=== PATIENT | male | born 1945 | race Caucasian/White ===

== ENCOUNTER 2019-05-25 14:19 | Emergency (ER) | payer MEDICARE, OTHER ==
[2019-05-25 14:41] LABS: BILIRUBIN,URINE NEGATIVE (NEGATIVE); GLUCOSE, URINE (UA) NEGATIVE (NEGATIVE); KETONES,URINE (UA) NEGATIVE (NEGATIVE); LEUKOCYTE ESTERASE, URINE NEGATIVE (NEGATIVE); NITRITE,URINE NEGATIVE (NEGATIVE); OCCULT BLOOD,URINE NEGATIVE (NEGATIVE); PROTEIN,URINE NEGATIVE (NEGATIVE); UROBILINOGEN,URINE 0.2 (NORMAL) E.U./dL (NORMAL)
[2019-05-25] MEDS ORDERED: SODIUM CHLORIDE 0.9% 1,000 ML IV ONE (14:41)
--- NOTE | 2019-05-25 14:43 | ED Physician Documentation ---
PD HPI ABD PAIN - Stated complaint Stated Complaint: SIDE/BACK PX - Chief complaint Chief Complaint: Abd Pain - History obtained from History obtained from: Patient - History of Present Illness Timing - onset: Other (73-year-old gentleman with history of PE on Eliquis, hypertension. He is been feeling ill for a little over a week with nausea, right flank pain, dark urine, dizziness, myalgias. Also some chest fullness. Was seen 2 days ago in the ER at [place]. Per him he had lab work showed done showing renal insufficiency although he does not know the details. He was low on blood pressure when he arrived. He received 3 L of IV fluids. Urinalysis was not done. He was released with a prescription for Zofran. He says he is no better.) Review of Systems Ten Systems: 10 systems reviewed and negative Constitutional: reports: Fatigue. denies: Fever, Chills Cardiac: reports: Chest pain / pressure. denies: Palpitations, Pedal edema, Calf pain Respiratory: reports: Dyspnea (gone). denies: Cough GI: reports: Abdominal Pain, Nausea, Diarrhea (once a day). denies: Vomiting : denies: Dysuria PD PAST MEDICAL HISTORY - Allergies Allergies/Adverse Reactions: Allergies Allergy/AdvReac Type Severity Reaction Status Date / Time No Known Drug Allergies Allergy Verified 05/25/19 14:30 PD ED PE NORMAL - Vitals Vital signs reviewed: Yes - General General: Alert and oriented X 3, No acute distress - HEENT HEENT: PERRL, EOMI - Neck Neck: Supple, no meningeal sign, No bony TTP - Cardiac Cardiac: RRR, No murmur - Respiratory Respiratory: No respiratory distress, Clear bilaterally - Abdomen Abdomen: Soft, Non tender - Back Back: No CVA TTP, No spinal TTP - Derm Derm: Normal color, Warm and dry - Extremities Extremities: No edema, No calf tenderness / cord - Neuro Neuro: Alert and oriented X 3, Normal speech Results - Vitals Vitals: Vital Signs - 24 hr 05/25/19 05/25/19 05/25/19 14:27 14:30 16:30 Temperature 36.3 C L Heart Rate 96 96 59 L Respiratory 16 16 16 Rate Blood Pressure 123/98 H 123/98 H 117/74 O2 Saturation 97 97 98 Oxygen O2 Source Room air - Labs Labs: Laboratory Tests 05/25/19 05/25/19 05/25/19 13:58 13:58 13:58 WBC 5.4 RBC 4.74 Hgb 14.2 Hct 40.1 L MCV 84.6 MCH 30.0 MCHC 35.4 RDW 12.3 Plt Count 221 MPV 10.3 Neut # (Auto) 4.2 Lymph # (Auto) 0.6 L [place] # (Auto) 0.5 Eos # (Auto) 0.1 Baso # (Auto) 0.0 Absolute Nucleated RBC 0.00 Nucleated RBC % 0.0 Sodium 138 Potassium 4.0 Chloride 103 Carbon Dioxide 21 Anion Gap 14.0 H BUN 20 Creatinine 1.1 Estimated GFR (MDRD) 66 L Glucose 121 H Calcium 9.3 Total Bilirubin 1.7 H AST 14 ALT 18 Alkaline Phosphatase 53 Troponin I < 0.04 Total Protein 8.0 Albumin 4.3 Globulin 3.7 Albumin/Globulin Ratio 1.2 Lipase 26 Urine Color Urine Clarity Urine pH Ur Specific [place] Urine Protein Urine Glucose (UA) Urine Ketones Urine Occult Blood Urine Nitrite Urine Bilirubin Urine Urobilinogen Ur Leukocyte Esterase Ur Microscopic Review Urine Culture Comments 05/25/19 14:39 WBC RBC Hgb Hct MCV MCH MCHC RDW Plt Count MPV Neut # (Auto) Lymph # (Auto) [place] # (Auto) Eos # (Auto) Baso # (Auto) Absolute Nucleated RBC Nucleated RBC % Sodium Potassium Chloride Carbon Dioxide Anion Gap BUN Creatinine Estimated GFR (MDRD) Glucose Calcium Total Bilirubin AST ALT Alkaline Phosphatase Troponin I Total Protein Albumin Globulin Albumin/Globulin Ratio Lipase Urine Color YELLOW Urine Clarity CLEAR Urine pH 6.0 Ur Specific [place] <=1.005 Urine Protein NEGATIVE Urine Glucose (UA) NEGATIVE Urine Ketones NEGATIVE Urine Occult Blood NEGATIVE Urine Nitrite NEGATIVE Urine Bilirubin NEGATIVE Urine Urobilinogen 0.2 (NORMAL) Ur Leukocyte Esterase NEGATIVE Ur Microscopic Review NOT INDICATED Urine Culture Comments NOT INDICATED - Rads (name of study) CT KUB Radiology: EMP read contemporaneously (No hydronephrosis or ureteral calculi, bilateral renal hypodensities, left upper pole renal scarring, LAP-BAND in place, degenerative disease in the back.) CT A/P w contrast Radiology: Final report received, See rad report RUQ sono Radiology: Final report received, See rad report PD MEDICAL DECISION MAKING - ED course Complexity details: reviewed old records (Records requested and received from [facility] emergency department from the evening of May 23. Chest x-ray was done and read as no acute disease.Blood pressure documented there is being 109/74.EKG was interpreted as it is normal.His creatinine on that date was 1.89 with a BUN of 38. Normal electrolytes. High-sensitivity troponin was negative. CBC was normal with a white count of 8.0. Hemoglobin at that time was 15.6. His bilirubin at that time was 1.1, now 1.7.) ED course: 73-year-old gentleman with about a week's worth of right flank and mid abdominal pain. He was seen the other day in [place], he says a urine was not done but his blood work was notable for acute renal failure which on review of the findings it was. He received 3 L of fluid. He is seeking further care today because he is neither better nor worse. He feels generally ill with continued pain and nausea and poor appetite. Pain is not severe and he declined medications for it. He was thoroughly worked up here today, initial CT was done without contrast to evaluate for kidney stone noting that renal function recently has been poor but this was noncontributory, and this was followed with a double contrast CT without further acute findings. He did have incidental findings including a gastric lap band in place, renal cyst, fatty liver. His bilirubin was higher today than it was the other day so right upper quadrant ultrasound was also done without findings of an acute nature other than a fatty liver. He seemed relieved that the results were negative and declined further treatment and agreed with discharge. Departure - Departure Disposition: 01 Home, Self Care Clinical Impression: Nausea Abdominal pain Qualifiers: Abdominal location: right upper quadrant Qualified Code(s): R10.11 - Right upper quadrant pain Condition: Good Record reviewed to determine appropriate education?: Yes Instructions: Abdominal Pain Comments: Return anytime if worse or if new symptoms develop. Follow-up with your doctor within the week for recheck. Drink plenty of fluids.
[2019-05-25 14:44] LABS: CLARITY,URINE CLEAR (CLEAR)
[2019-05-25 15:01] LABS: BASOPHILS % (AUTO) 0.6 %; EOSINOPHILS # (AUTO) 0.1 10^3/uL (0.0-0.7); EOSINOPHILS % (AUTO) 1.8 %; HGB - HEMOGLOBIN 14.2 g/dL (14.0-18.0); LYMPHOCYTES # (AUTO) 0.6 10^3/uL (1.5-3.5); LYMPHOCYTES % (AUTO) 10.9 %; MEAN CORPUSCULAR HGB CONC 35.4 g/dL (32.0-36.0); MEAN CORPUSCULAR VOLUME 84.6 fL (80.0-94.0); MEAN PLATELET VOLUME 10.3 fL (7.4-11.4); MONOCYTES # (AUTO) 0.5 10^3/uL (0.0-1.0); NEUTROPHILS # (AUTO) 4.2 10^3/uL (1.5-6.6); NEUTROPHILS % (AUTO) 77.3 %; PLT - PLATELET COUNT 221 10^3/uL (130-450); RED BLOOD COUNT 4.74 10^6/uL (4.70-6.10); RED CELL DISTRIBUTION WIDTH 12.3 % (12.0-15.0); WHITE BLOOD COUNT 5.4 x10^3/uL (4.8-10.8)
[2019-05-25 15:15] LABS: ALBUMIN 4.3 g/dL (3.2-5.5); ALBUMIN/GLOBULIN RATIO 1.2 (1.0-2.2); BILIRUBIN,TOTAL 1.7 mg/dL (0.2-1.0); CALCIUM 9.3 mg/dL (8.5-10.3); CREATININE 1.1 mg/dL (0.6-1.2)
--- NOTE | 2019-05-25 15:35 | CT Report ---
Reason: R flank pain, dark urine Procedure Date: 05/25/2019 Accession Number: [id number] / [id number] Procedure: CT - Abdomen/Pelvis WO CPT Code: FULL RESULT: EXAM: CT ABDOMEN AND PELVIS EXAM DATE: 05/25/2019 03:01 PM. CLINICAL HISTORY: R flank pain, dark urine. COMPARISONS: None. TECHNIQUE: Routine helical CT imaging was performed through the abdomen and pelvis. IV contrast: None. Enteric contrast: No. Reconstructions: Coronal and sagittal. In accordance with CT protocol optimization, one or more of the following dose reduction techniques were utilized for this exam: automated exposure control, adjustment of mA and/or KV based on patient size, or use of iterative reconstructive technique. FINDINGS: Lung Bases: Unremarkable. Liver: Normal. No masses. Gallbladder/Bile Ducts: Unremarkable. Spleen: Normal. Pancreas: Normal. Adrenal Glands: Normal. Kidneys: No hydronephrosis or convincing renal or ureteral calculi. Left upper pole renal cortical scarring. Right anterior mid pole cortical hypodensity measuring 41 mm and lower pole parapelvic hypodensity measuring 18 mm, indeterminate by noncontrast CT although possibly cysts; ultrasound could be performed for confirmation. Peritoneal Cavity/Bowel: No free air or free fluid. Mild diverticulosis of the sigmoid colon. No mass or acute inflammatory process. No obstruction. Patient is status post gastric lap band procedure. No organized fluid collection. Appendix not clearly visualized. No pericecal inflammatory changes are evident. Pelvic Organs: Urinary bladder minimally distended, grossly unremarkable. Prostate gland isn't within normal limits for size. Vasculature: Scattered atherosclerotic calcification of the aorta and iliac arteries. Bones: No suspicious bony lesion or acute fracture. Multilevel lumbar degeneration with chronic bilateral pars defects at L5-S1 and associated anterolisthesis measuring approximately 12 mm. Other: None. IMPRESSION: 1. No convincing acute abdominopelvic findings. No hydronephrosis or convincing renal or ureteral calculi. 2. Bilateral renal hypodensities, indeterminate by noncontrast CT although possibly cysts. Ultrasound could be performed for confirmation. 3. Left upper pole renal cortical scarring may reflect prior infectious or possibly vascular insult. 4. Other findings as noted above. RADIA
[2019-05-25] MEDS ORDERED: IOVERSOL 320 100 ML VIAL IVP ONE ×2 (15:54→17:43)
[2019-05-25] MEDS ORDERED: IOVERSOL 320 50 ML VIAL ONE (15:54)
[2019-05-25] MEDS ORDERED: IOVERSOL 320 50 ML VIAL PO ONE (17:43)
--- NOTE | 2019-05-25 18:13 | CT Report ---
Reason: IV and PO, R abd pain Procedure Date: 05/25/2019 Accession Number: [id number] / [id number] Procedure: CT - Abdomen/Pelvis W CPT Code: FULL RESULT: EXAM: CT ABDOMEN AND PELVIS EXAM DATE: 05/25/2019 04:55 PM. CLINICAL HISTORY: Right abdominal pain COMPARISONS: ABDOMEN/PELVIS W/O 05/25/2019 2:55 PM. TECHNIQUE: Routine helical CT imaging was performed through the abdomen and pelvis. IV contrast: OPTI 320 90ML. Enteric contrast: Yes. Reconstructions: Coronal and sagittal. In accordance with CT protocol optimization, one or more of the following dose reduction techniques were utilized for this exam: automated exposure control, adjustment of mA and/or KV based on patient size, or use of iterative reconstructive technique. FINDINGS: Lung Bases: Unremarkable allowing for moderate image degradation due to respiratory motion artifact. Small hiatal hernia. Liver: Mild diffuse hypoattenuation Gallbladder/Bile Ducts: Unremarkable. Spleen: Mildly enlarged, 13.2 cm in dimension. Pancreas: Normal. Adrenal Glands: Normal. Kidneys: 4 cm cyst at the interpolar region of the right kidney. 12 mm cyst at the lower pole of the left kidney. 9 mm hypoattenuating focus at the upper pole and a 5 mm hypoattenuating foci at the lower pole of the left kidney , too small to definitively characterize but statistically cysts. Left parapelvic cyst. No hydroureteronephrosis. Peritoneal Cavity/Bowel: Gastric lap band in place with 4 at the anterior upper abdominal wall... No free fluid, free air or adenopathy. No masses or acute inflammatory process. Small and large bowel are normal in caliber without evidence of inflammation or obstruction. Redundant sigmoid colon. Pelvic Organs: Normal. The distended urinary bladder and visualized pelvic organs are within normal limits. Vasculature: Mild aortobiiliac atherosclerosis without aneurysm. 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 Severe degenerative disk disease of the lumbar spine. Mild dextrocurvature of the lumbar spine. Moderate bilateral sacroiliac osteoarthritis. Other: None. IMPRESSION: 1. Gastric lap band in place. 2. Mild diffuse hepatic steatosis. 3. Mild splenomegaly, nonspecific. RADIA
--- NOTE | 2019-05-25 18:17 | Ultrasound Report ---
Reason: R abd pain, rising bili Procedure Date: 05/25/2019 Accession Number: [id number] / [id number] Procedure: US - Abdomen Limited CPT Code: FULL RESULT: EXAM: ABDOMEN ULTRASOUND LIMITED, RUQ EXAM DATE: 05/25/2019 06:03 PM. CLINICAL HISTORY: Right abdominal pain, rising bilirubin COMPARISON: ABDOMEN/PELVIS W/ 05/25/2019 4:53 PM. TECHNIQUE: Real-time scanning was performed with static images obtained. FINDINGS: Liver: Enlarged with increased echotexture and poor acoustic penetration. 19.4 cm. Main portal vein flow: Hepatopetal. Gallbladder: Normal. No stones, wall thickening, or sonographic Rice's sign. Biliary System: CBD measures 2 mm. No intrahepatic or extrahepatic ductal dilatation. Other: Small right renal cysts. No hydronephrosis. IMPRESSION: Fatty liver. RADIA
[2019-05-25 18:41] VITALS: BP 130/88
== END 2019-05-25 18:41 | disposition home or self-care (01) ==
LOC: ED 14:19
DX: R10.11 Right upper quadrant pain (principal); R11.0 Nausea; N28.1 Cyst of kidney, acquired; K76.0 Fatty (change of) liver, not elsewhere classified; R16.1 Splenomegaly, not elsewhere classified; Z98.84 Bariatric surgery status; I10 Essential (primary) hypertension; Z86.711 Personal history of pulmonary embolism; Z79.01 Long term (current) use of anticoagulants
CPT/HCPCS: 36415; 74176; 74177; 76705; 80053; 81003; 83690; 84484; 85025; 96360; 99283; 99284; Q9967; 81001; 87086

== ENCOUNTER 2022-03-16 11:09 | Outpatient (CLI) | payer OTHER, MEDICARE ==
[2022-03-16 14:34] LABS: BASOPHILS % (AUTO) 0.7 %; EOSINOPHILS # (AUTO) 0.2 10^3/uL (0.0-0.7); EOSINOPHILS % (AUTO) 2.7 %; HCT - HEMATOCRIT 44.8 % (42.0-52.0); HGB - HEMOGLOBIN 15.1 g/dL (14.0-18.0); LYMPHOCYTES # (AUTO) 0.9 10^3/uL (1.5-3.5); LYMPHOCYTES % (AUTO) 14.6 %; MEAN CORPUSCULAR HEMOGLOBIN 29.7 pg (27.0-31.0); MEAN CORPUSCULAR HGB CONC 33.7 g/dL (32.0-36.0); MEAN PLATELET VOLUME 10.7 fL (7.4-11.4); MONOCYTES # (AUTO) 0.4 10^3/uL (0.0-1.0); MONOCYTES % (AUTO) 6.3 %; NEUTROPHILS # (AUTO) 4.5 10^3/uL (1.5-6.6); NEUTROPHILS % (AUTO) 75.4 %; PLT - PLATELET COUNT 243 10^3/uL (130-450); RED BLOOD COUNT 5.09 10^6/uL (4.70-6.10); RED CELL DISTRIBUTION WIDTH 12.8 % (12.0-15.0)
[2022-03-16 15:09] LABS: ALBUMIN 4.2 g/dL (3.2-5.5); ALBUMIN/GLOBULIN RATIO 1.2 (1.0-2.2); BILIRUBIN,TOTAL 0.6 mg/dL (0.2-1.0); CALCIUM 9.7 mg/dL (8.5-10.3); POTASSIUM 4.7 mmol/L (3.5-5.0); TOTAL PROTEIN 7.6 g/dL (6.7-8.2)
[2022-03-16 15:36] LABS: PSA FREE 0.468 ng/mL (0.16-2.81)
[2022-03-16 15:37] LABS: PSA TOTAL 0.795 ng/mL (0.000-2.000)
[2022-03-16 15:43] LABS: FOLATE 9.5 ng/mL (5.90 - >24.8)
[2022-03-16 20:16] LABS: ESTIMATED AVERAGE GLUCOSE 120 mg/dL (70-100); HEMOGLOBIN A1c% 5.8 % (4.27-6.07)
== END 2022-03-16 11:10 | disposition home or self-care (01) ==
LOC: LAB.S 11:09
PROVIDERS: ATTEND Physician Assistant
DX: E11.9 Type 2 diabetes mellitus without complications (principal); G62.9 Polyneuropathy, unspecified; R39.198 Other difficulties with micturition
CPT/HCPCS: 36415; 80053; 82607; 82746; 83036; 84153; 84154; 85025

== ENCOUNTER 2022-12-26 16:52 | Outpatient (CLI) | payer OTHER, MEDICARE ==
--- NOTE | 2022-12-27 11:29 | Ultrasound Report ---
PROCEDURE: Bladder INDICATIONS: LOWER URINARY TRACT SYMPTOMS TECHNIQUE: Real-time scanning was performed of the bladder, with image documentation. COMPARISON: CT of abdomen and pelvis dated 05/25/2019 and ultrasound of abdomen dated 05/25/2019 FINDINGS: Bladder: Pre-void bladder volume is 438.4 mL. Post-void residual is 42.1 mL. Pre-void images demon strate no intraluminal masses or stones. On pre-void images, bilateral ureteral jets are noted with color Doppler interrogation. (Of note, ureteral jets may not be detectable in up to 25% of cases due to insufficient differences in specific gravity between ureteral and bladder urine). Enlarged prost ate gland is noted measures 5.1 x 4.6 x 5 cm in size. Miscellaneous: No free pelvic fluid. IMPRESSION: 1. Enlarged prostate gland with mass effect on floor of urinary bladder. 2. No bladder wall abnormality. Small to moderate amount of postvoid residual. Reviewed by: Danish Knight MD on 12/27/2022 11:28 AM PST Approved by: Danish Knight MD on 12/27/2022 11:28 AM PST Station ID: [id number]
== END 2022-12-26 16:53 | disposition home or self-care (01) ==
LOC: DI 16:52
PROVIDERS: ATTEND Internal Medicine
DX: R39.9 Unspecified symptoms and signs involving the genitourinary system (principal); N40.1 Benign prostatic hyperplasia with lower urinary tract symptoms

== ENCOUNTER 2023-06-05 15:50 | Outpatient (CLI) | payer MEDICARE, OTHER ==
--- NOTE | 2023-06-05 16:19 | XRAY Report ---
PROCEDURE: Chest 2 View X-Ray INDICATIONS: DIZZNESS GIDDINESS TECHNIQUE: 2 views of the chest were acquired. COMPARISON: None. FINDINGS: Surgical changes and devices: None. Lungs and pleura: No pleural effusions or pneumothorax. Lungs are clear. Mediastinum: Mediastinal contours appear normal. Heart size is normal. Diaphragmatic eventration. Bones and chest wall: No suspicious bony lesions. Degenerative changes of the spine. Partially visua lized left shoulder arthroplasty. Overlying soft tissues appear unremarkable. IMPRESSION: No acute cardiopulmonary process. Reviewed by: Erich Wan MD on 06/05/2023 4:17 PM PDT Approved by: Erich Wan MD on 06/05/2023 4:17 PM PDT Station ID: [id number]
== END 2023-06-05 15:51 | disposition home or self-care (01) ==
LOC: DI.S 15:50
PROVIDERS: ATTEND Internal Medicine
DX: R42 Dizziness and giddiness (principal)

== ENCOUNTER 2023-07-26 14:44 | Outpatient (CLI) | payer MEDICARE | END 2023-07-26 14:45 | disposition home or self-care (01) | LOC: DI 14:44 | PROVIDERS: ATTEND Internal Medicine Cardiovascular Disease | DX: R06.09 Other forms of dyspnea (principal); I49.3 Ventricular premature depolarization; I49.1 Atrial premature depolarization; R00.8 Other abnormalities of heart beat; I51.7 Cardiomegaly | CPT/HCPCS: 93306 ==

== ENCOUNTER 2023-07-31 08:12 | Outpatient (CLI) | payer MEDICARE ==
[2023-07-31 15:37] LABS: CALCIUM 9.8 mg/dL (8.5-10.3); CREATININE 1.1 mg/dL (0.6-1.3); POTASSIUM 4.6 mmol/L (3.5-4.5)
== END 2023-07-31 08:13 | disposition home or self-care (01) ==
LOC: LAB.S 08:12
PROVIDERS: ATTEND Nurse Practitioner
DX: R06.00 Dyspnea, unspecified (principal)
CPT/HCPCS: 36415; 80048

== ENCOUNTER 2023-09-15 11:09 | Outpatient (CLI) | payer MEDICARE, OTHER ==
[2023-09-15 15:33] LABS: CALCIUM 9.5 mg/dL (8.5-10.3); CREATININE 1.3 mg/dL (0.6-1.3); POTASSIUM 4.2 mmol/L (3.5-4.5)
== END 2023-09-15 11:10 | disposition home or self-care (01) ==
LOC: LAB.S 11:09
PROVIDERS: ATTEND Internal Medicine
DX: R06.09 Other forms of dyspnea (principal)
CPT/HCPCS: 36415; 80048